=== PATIENT | male | born 1950 | race Caucasian/White ===

== ENCOUNTER → 2019-04-20 | Outpatient (CLI) | payer OTHER, MEDICARE ==
[~2019-04-20] VITALS: Ht 188 cm; Wt 93.0 kg
[~2019-04-20] MED LIST: ALLOPURINOL 30300 M1 PO; ASPIR 8181 MG PO; CELEXA40 MG PO; CRESTOR20 MG PO; FARXIGA10 MG PO; FENOFIBRATE160 MG PO; INVOKANA300 MG PO; NEURONTIN 300300 M1 PO; PROBIOTIC1 EAC6 PO; QUINAPRIL HCL20 MG PO; TRAZODONE HCL50 MG PO; TRESIBA FL100 UNIT/1 SUBQ; VICTOZA 3-0.6 MG/0.1 SUBQ
--- NOTE | 2019-04-20 09:54 | P ---
Former[facility] [place] [address] PROCEDURE REPORT Name: KELL BRENNAN Room #: REG [facility]#: [id number] Admission: 04/20/19 Attend Phys: Wood Hayes MD Discharge: Date of : 52 Report #: [id number] THIS REPORT FOR: //name// CC: Domitila Hayes DATE OF SERVICE: 04/20/2019 OUTPATIENT COLONOSCOPY BRIEF HISTORY: The patient is a 68-year-old male with a history of colon polyps. He had a small adenoma removed in 2007. He also tells me he had a recent Cologuard test, which was positive. PREOPERATIVE DIAGNOSES: History of colon polyps and positive Cologuard. POSTOPERATIVE DIAGNOSES: Multiple colon polyps. MEDICATIONS: Deep sedation with propofol per anesthesia. SPECIMENS: 1. A 5 mm polyp, cecum. 2. Diminutive polyp, hepatic flexure. 3. Diminutive polyps x 2, proximal transverse colon. 4. A 5 mm sessile polyp, mid transverse colon. 5. Diminutive polyp, hepatic flexure. 6. A 6-7 mm polyp and diminutive polyp at 50 cm. ESTIMATED BLOOD LOSS: 3 mL. PROCEDURE: Colonoscopy to cecum and terminal ileum with snare polypectomy and biopsy. FINDINGS: Prior to propofol sedation, procedure of colonoscopy discussed with the patient as well as potential risks and its complications. He indicates he understands and desires to proceed. DESCRIPTION OF PROCEDURE: With the patient in left lateral decubitus position, digital examination was completed, which revealed no abnormalities. Subsequently, the Olympus video colonoscope was introduced in the rectum, advanced under direct vision to the cecum. It was done with minimal difficulty. The cecum was identified by the ileocecal valve and the appendiceal orifice. I was able to visualize the distal segment of terminal ileum, which was inspected and noted to be unremarkable. At that point, the scope was slowly withdrawn and careful circumferential views obtained including retroflexion of the scope in [facility] [address] [place] [address] PROCEDURE REPORT Name: KELL BRENNAN Room #: REG [facility].#: [id number] Admission: 04/20/19 Attend Phys: Wood Hayes MD Discharge: Date of : 52 Report #: [id number] the ascending colon. Upon slow withdrawal of the scope, the prep was excellent. Mucosa was within normal limits, normal vascular pattern, normal light reflex. As we withdrew the scope, a 5 mm polyp was seen in the cecum, removed by cold snare polypectomy and recovered. Scope was further withdrawn and a diminutive polyp was seen and removed with biopsy forceps from the hepatic flexure. Scope was further withdrawn and no additional abnormalities were seen until the proximal transverse colon was reached, at which point, 2 diminutive polyps seen and removed with biopsy forceps. In the mid transverse colon, a 5 mm sessile polyp was seen and removed by cold snare polypectomy. At the splenic flexure, a diminutive polyp was seen and removed with biopsy forceps. At 50 cm, a 6-8 mm sessile polyp was seen and removed by cold snare polypectomy. In addition, the same vicinity, a diminutive polyp was seen and removed with biopsy forceps. The scope was further withdrawn and no additional abnormalities were seen. Scope was withdrawn into the rectum, no abnormalities were seen. Upon retroflexion, no additional abnormalities were seen. Scope was withdrawn. The patient tolerated the procedure well. CONDITION OF THE PATIENT UPON DISCHARGE: Following procedure, the patient was drowsy, arousable, conversant, and will be discharged to home when fully ambulatory. INSTRUCTIONS TO THE PATIENT AND FAMILY AT THE TIME OF DISCHARGE: We will follow up on the pathology. If three or more polyps are adenomas, he should return in 3 years, otherwise 5 years would be indicated. Last colonoscopy was in 2007. Withdrawal time from the cecum was about 17 minutes. <ELECTRONICALLY SIGNED> By: Wood Hayes MD 04/20/19 0954 [id number] Wood Hayes MD /nt
--- NOTE | 2019-04-24 17:06 | PATH ---
[facility] [address] [address] PATHOLOGY RPT PROCEDURE Name: NIK LOPEZ Room #: REG [facility] M..#: [id number] Admission: 04/20/19 Date of : 52 Discharge: Report #: [id number] Path Case #: [id number] [facility] Accession Number: [id number] . 01 Material submitted: . PART A: cecum - POLYP AT CECUM PART B: hepatic flexure - POLYP AT HEPATIC FLEXURE PART C: colon - POLYP AT PROXIMAL TRANSVERSE COLON X2. Modifiers: proximal, transverse PART D: colon - POLYP AT MID TRANSVERSE COLON. Modifiers: mid, transverse PART E: splenic flexure - POLYP AT SPLENIC FLEXURE PART F: colon - POLYP AT 50CM X2 . 01 Clinical history: . Preop DX: Screening Postop DX: Colon polyps . 02 Diagnosis: A. Polyp, at cecum, endoscopic biopsy: - Tubular adenoma. - Negative for high grade dysplasia. . B. Polyp, at hepatic flexure, endoscopic biopsy: - Tubular adenoma. - Negative for high grade dysplasia. . C. Polyp x 2, at proximal transverse colon, endoscopic biopsy: - Tubular adenoma x 2. - Negative for high grade dysplasia. . D. Polyp, at mid-transverse colon, endoscopic biopsy: - Compatible with a hyperplastic polyp and a lymphoid aggregate. - Negative for dysplasia. . E. Polyp, at splenic flexure, endoscopic biopsy: - Tubular adenoma. - Negative for high grade dysplasia. . F. Polyp x 2, at 50 cm, endoscopic biopsy: - Tubular adenoma identified in multiple fragments (all fragments sampled). - Negative for high grade dysplasia. (IUV/db; 04/24/2019) LBQ 04/24/2019 1308 Local . 02 Electronically signed: . Mary Murphy MD, Pathologist [address] [address] PATHOLOGY RPT PROCEDURE Name: NIK LOPEZ MINI Room #: REG [facility] Scott#: [id number] Admission: 04/20/19 Date of : 52 Discharge: Report #: [id number] Path Case #: [id number] [facility]- [id number] . 01 Gross description: . A. Received in formalin labeled "Nik Lopez, polyp at cecum," is a segment of cat-brown soft tissue measuring 0.4 x 0.2 x 0.2 cm in greatest dimensions. The specimen is submitted entirely in cassette A1. . B. Received in formalin labeled "Kishan Lopezhen, polyp at hepatic flexure," is a segment of cat-brown soft tissue measuring 0.4 x 0.3 x 0.2 cm in greatest dimensions. The specimen is submitted entirely in cassette B1. . C. Received in formalin labeled "Kishan Lopezhen, polyp at proximal transverse x2," are two segments of cat-brown soft tissue measuring 0.4 x 0.2 x 0.2 cm and 0.4 x 0.4 x 0.3 cm in greatest dimensions. The specimen is submitted entirely in cassette C1. . D. Received in formalin labeled "Kishan oLpezhen, polyp at mid-transverse colon," is a segment of cat-brown soft tissue measuring 0.6 x 0.4 x 0.3 cm in greatest dimensions. The specimen is submitted entirely in cassette D1. . E. Received in formalin labeled "Kishan Lopezhen, polyp at splenic flexure," are two segments of pale cat soft tissue measuring 0.2 x 0.1 x 0.1 cm and 0.4 x 0.2 x 0.2 cm in greatest dimensions. The specimen is submitted entirely in cassette E1. The smaller segment may not survive processing. . F. Received in formalin labeled "Nik Lopez, polyp at 50 cm x2," are two segments of cat-brown soft tissue measuring 0.4 x 0.3 x 0.2 cm and 0.8 x 0.5 x 0.3 cm in greatest dimensions. The larger segment is inked and bisected, and the specimen is submitted entirely in cassette F1. ([facility]; 04/21/2019) XME/XME 04/21/2019 1130 Local . 02 Pathologist provided ICD-10: D12.0, D12.3, K63.5, D12.6 . 02 CPT . 400608, 491191, [id number], 955206, 367696, 576404 Specimen Comment: A courtesy copy of this report has been sent to [phone], [phone] Specimen Comment: [id number] Specimen Comment: Report sent to and Performed at: [address], [place], [place] [id number] MD Aric Santiago MD Phone: [phone] [facility] [address] [place] [address] PATHOLOGY RPT PROCEDURE Name: NIK LOPEZ Room #: REG [facility].#: [id number] Admission: 04/20/19 Date of : 52 Discharge: Report #: [id number] Path Case #: [id number] [facility]formed at: [facility] [address] [id number] MD Mary Murphy MD Phone: [phone]
== END | disposition home or self-care (01) ==
LOC: GI 06:39
DX: R19.5 Other fecal abnormalities (principal); D12.0 Benign neoplasm of cecum; D12.3 Benign neoplasm of transverse colon; D12.2 Benign neoplasm of ascending colon; D12.5 Benign neoplasm of sigmoid colon; I10 Essential (primary) hypertension; E11.9 Type 2 diabetes mellitus without complications; E78.5 Hyperlipidemia, unspecified; F32.9 Major depressive disorder, single episode, unspecified; K21.9 Gastro-esophageal reflux disease without esophagitis; M10.9 Gout, unspecified; Z98.890 Other specified postprocedural states; Z87.442 Personal history of urinary calculi; Z86.010 Personal history of colon polyps; Z87.891 Personal history of nicotine dependence; Z79.899 Other long term (current) drug therapy; Z79.4 Long term (current) use of insulin; Z90.49 Acquired absence of other specified parts of digestive tract; Z98.42 Cataract extraction status, left eye
CPT/HCPCS: 62110; 62900